=== PATIENT | male | born 1930 | race Caucasian/White ===

== ENCOUNTER 2021-08-26 05:39 | Outpatient (CLI) | payer MEDICARE ==
[~2021-08-26] VITALS: Ht 182.9 cm; Wt 109.1 kg
[2021-08-26] MEDS ORDERED: VITA-189 PO (16:07)
[2021-08-26] MEDS ORDERED: ATOR20TA66 PO (16:07)
[2021-08-26] MEDS ORDERED: CALC-140 PO (16:07)
[2021-08-26] MEDS ORDERED: FURO20TA4 PO (16:07)
[2021-08-26] MEDS ORDERED: TMSL.4C PO (16:07)
[2021-08-26] MEDS ORDERED: ASCO-262 PO (16:07)
[2021-08-26] MEDS ORDERED: CYAN100088 PO (16:07)
[2021-08-26] MEDS ORDERED: ASPI-999 PO (16:07)
[2021-08-26] MEDS ORDERED: FERR-84 PO (16:07)
[2021-08-26] MEDS ORDERED: POTA10TA36 PO (16:07)
[2021-08-26] MEDS ORDERED: CYAN1TAB43 PO (16:07)
[2021-08-26] MEDS ORDERED: FINA5TAB6 PO (16:07)
[2021-08-26] MEDS ORDERED: NITR1PAT56 TD (16:07)
[2021-08-26] MEDS ORDERED: AMLO-250 PO (16:07)
== END 2021-08-26 16:15 | disposition home or self-care (01) ==
LOC: PREOP 05:39
PROVIDERS: ATTEND Otolaryngology Otolaryngology/Facial Plastic Surgery
DX: Z01.818 Encounter for other preprocedural examination (principal)

== ENCOUNTER 2021-09-04 07:54 | Day surgery (SDC) | payer MEDICARE ==
[2021-09-04] VITALS (7 sets, daily range): BP systolic 106–160; BP diastolic 54–88
[~2021-09-04] VITALS: Ht 182.9 cm; Wt 109.1 kg
[~2021-09-04 07:54] MED LIST: AMLO-250 PO; ASCO-262 PO; ASPI-999 PO; ATOR20TA66 PO; CALC-140 PO; CYAN100088 PO; CYAN1TAB43 PO; FERR-84 PO; FINA5TAB6 PO; FURO20TA4 PO; NITR1PAT56 TD; POTA10TA36 PO; TMSL.4C PO; VITA-189 PO
--- OUTSIDE RECORDS SUMMARY | 2021-09-04 07:58 | XMS REPORT | Clinical Summary ---
Author Author [facility] Organization [facility] Address Unknown Phone Unavailable Care Team Providers Care Fur Dyer Name Role Phone PCP Unavailable Allergies Not on File Medications Not on file Active Problems Not on file Social History Date Tobacco Use Types Packs/Day Years Used Never Assessed Sex Assigned at Date Recorded Not on file Last Filed Vital Signs Not on file Plan of Treatment Not on file Results Not on filefrom Last 3 Months
--- OUTSIDE RECORDS SUMMARY | 2021-09-04 07:58 | XMS REPORT ---
Author Author Francisco RUIZ Organization [facility] Address [address] [place], [place] [id number] Care Team Providers Care Driller'S Offsider Name Role Phone KAVEH RUIZ PCP Allergies and Adverse Reactions Name Reaction Notes Cipro Plan of Treatment Planned Activity Comments Planned Date Planned Time Plan/Goal PSA TOTAL 01/01/2019 12:00 AM PSA TOTAL 02/07/2019 12:00 AM URINALYSIS ROUTINE C&S IF IND 08/18/2021 12:00 AM Medications Active Name Start Date Estimated Completion Date SIG Co mments Aspir-81 81 mg oral tablet,delayed release (DR/EC) take 1 tablet (81 mg) by oral route once daily Lasix 20 mg oral tablet take 1 tablet (20 mg) by oral route once daily Avodart 0.5 mg oral capsule take 1 capsule (0.5 mg) by oral route once daily Vitamin B-6 oral Vitamin B-12 oral iron 325 mg (65 mg iron) oral tablet take 1 tablet (325 mg) by oral route 2 times per day potassium chloride 10 mEq oral capsule, extended release take 1 capsule (10 meq) by oral route once daily with food lisinopril 5 mg oral tablet take 1 tablet (5 mg) by oral route once daily tamsulosin oral capsule,extended release 24hr 0.4 mg 05/07/2021 05/02/2022 take 2 capsules (0.8 mg) by oral route once daily 1/2 hour following the same meal each day for 90 days Name Start Date Expiration Date SIG Comments Cipro 250 mg oral tablet Take 1 tablet PO BID Bactrim DS 800-160 mg oral tablet 07/29/2016 08/05/2016 take 1 tablet by oral route every 12 hours for 7 days tamsulosin 0.4 mg oral capsule t chaparrita 1 capsule (0.4 mg) by oral route once daily 1/2 hour following the same meal each day Bactrim 400 mg-80 mg tablet 05/28/2021 06/04/2021 take 1 tablet by oral route 2 times a day for 7 days clotrimazole-betamethasone 1-0.05 % topical cream 07/01/2021 07/29/2021 apply to the affected and surrounding areas of skin by topical route 2 times per day in the morning and evening for 14 days cefdinir 300 mg oral capsule 07/01/2021 07/11/2021 gustavo e 1 capsule (300 mg) by oral route every 12 hours for 10 days Discontinued Name Start Date Discontinued Date SIG Comments doxazosin oral 06/15/2019 Takes 1 tablet PO QD cephalexin 250 mg capsule 05/19/2021 07/01/2021 take 1 capsule (250 mg) by oral route once daily for UTI prophylaxis took 30d and did not refill Problem List Description Status Onset BPH (benign prostatic hyperplasia) Active Edema Active Adenocarcinoma of prostate Active 08/27/2015 Urinary retention Active 08/27/2015 Adenocarcinoma of prostate Active 09/01/2015 Bacterial UTI Active 03/10/2016 Bladder calculus Active 03/10/2016 Bacterial urinary infection Active 07/27/2016 Phimosis Active 07/27/2016 Lip lesion Active 11/26/2016 Chronic UTI Active 11/26/2016 Drug therapy Active 06/09/2017 H/O renal calculi Active 06/09/2017 Acquired bladder neck obstruction Active 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 Vital Signs Date Time BP-Sys(mm[Hg] BP-[place](mm[Hg]) HR(bpm) RR(rpm) Temp WT HT HC BMI BSA BMI Percentile O2 Sat(%) 08/18/2021 1:01:00 PM 132 mm[Hg] 94 mm[Hg] 77 {beats}/min 24 rpm 98.1 F 261 lbs 72 in 35.3976 kg/m2 2.4524 m2 95 % 06/30/2021 2:00:00 PM 128 mm[Hg] 90 mm[Hg] 93 {beats}/min 18 rpm 98.8 F 96 % 05/07/2021 1:38:00 PM 126 mm[Hg] 78 mm[Hg] 67 {beats}/min 18 rpm 97.5 F 256 lbs 72 in 34.7195 kg/m2 2.4288 m2 93 % 04/14/2021 1:21:00 PM 138 mm[Hg] 86 mm[Hg] 80 {beats}/min 16 rpm 97.9 F 258 lbs 72 in 34.99 kg/m2 2.44 m2 95 % 06/15/2019 2:44:00 PM 130 mm[Hg] 86 mm[Hg] 67 {beats}/min 18 rpm 98.1 F 248 lbs 72 in 33.6345 kg/m2 2.3905 m2 94 % 02/07/2019 3:51:00 PM 136 mm[Hg] 84 mm[Hg] 55 {beats}/min 58 rpm 97.7 F 248.125 lbs 72 in 33.65 kg/m2 2.39 m2 94 % 11/08/2018 1:11:00 PM 120 mm[Hg] 88 mm[Hg] 97 {beats}/min 18 rpm 98.4 F 244 lbs 72 in 33.092 kg/m2 2.3712 m2 95 % 04/28/2018 3:11:00 PM 124 mm[Hg] 62 mm[Hg] 54 {beats}/min 14 rpm 98.4 F 245.25 lbs 96 % 10/18/2017 10:16:00 AM 148 mm[Hg] 92 mm[Hg] 56 {beats}/min 18 rpm 246 lbs 72 in 33.36 kg/m2 2.38 m2 95 % 06/09/2017 10:38:00 AM 120 mm[Hg] 80 mm[Hg] 49 {beats}/min 20 rpm 97.2 F 249 lbs 72 in 33.7701 kg/m2 2.3953 m2 94 % 11/26/2016 8:50:00 AM 130 mm[Hg] 68 mm[Hg] 55 {beats}/min 20 rpm 96.7 F 252 lbs 72 in 34.18 kg/m2 2.41 m2 96 % 07/27/2016 8:25:00 AM 128 mm[Hg] 74 mm[Hg] 51 {beats}/min 22 rpm 97 F 246 lbs 72 in 33.3633 kg/m2 2.3809 m2 96 % 03/10/2016 8:54:00 AM 160 mm[Hg] 80 mm[Hg] 50 {beats}/min 18 rpm 97.8 F 232 lbs 72 in 31.46 kg/m2 2.31 m2 96 % 08/06/2015 11:05:00 AM 224 lbs 72 in 30.3795 k g/m2 2.2719 m2 05/02/2015 9:48:00 AM 224 lbs 72 in 30.38 kg/m 2 2.27 m2 Social History Name Description Comments Caffeine Current every day 02/07/2019 - Tobacco Never smoker History of Procedures Date Ordered Description Order Status 08/06/2015 12:00 AM MICROBIOLOGY PROCEDURE Reviewed 08/13/2015 12:00 AM URNLS DIP STICK/TABLET RGNT AUTO W/O FLORES ROSCOPY Reviewed 08/15/2015 12:00 AM US URINE CAPACITY MEASURE Reviewed 03/10/2016 9:43 AM URINALYSIS AUTO W/O SCOPE Reviewed 03/10/2016 12:00 AM MICROBIOLOGY PROCEDURE Reviewed 07/27/2016 12:00 AM MICROBIOLOGY PROCEDURE Reviewed 07/27/2016 9:19 AM URINALYSIS AUTO W/O SCOPE Reviewed 11/26/2016 12:00 AM MICROBIOLOGY PROCEDURE Reviewed 05/17/2017 12:00 AM ASSAY OF PSA TOTAL Reviewed 06/09/2017 12:00 AM US EXAM PELVIC LIMITED Reviewed 06/09/2017 1:06 PM URINALYSIS AUTO W/O SCOPE Reviewed 10/18/2017 12:09 PM URINALYSIS AUTO W/O SCOPE Reviewed 04/28/2018 12:00 AM URINALYSIS AUTO W/SCOPE Reviewed 10/30/2018 12:00 AM ASSAY OF PSA TOTAL Reviewed 10/30/2018 12:00 AM X-RAY EXAM OF ABDOMEN Reviewed 02/07/2019 12:00 AM URINALYSIS AUTO W/SCOPE Reviewed 06/11/2019 12:00 AM ASSAY OF TOTAL TESTOSTERONE Reviewed 06/11/2019 12:00 AM ASSAY OF PSA TOTAL Reviewed 06/15/2019 12:00 AM URINALYSIS AUTO W/SCOPE Reviewed 04/14/2021 1:48 PM US URINE CAPACITY MEASURE Reviewed 04/14/2021 12:00 AM URINALYSIS AUTO W/SCOPE Reviewed 05/19/2021 12:00 AM URINALYSIS AUTO W/SCOPE Reviewed 05/19/2021 12:00 AM CYSTOSCOPY Reviewed 06/30/2021 12:00 AM URINALYSIS AUTO W/SCOPE Reviewed 05/02/2015 12:00 AM METABOLIC PANEL TOTAL CA Reviewed 05/27/2015 12:00 AM ASSAY OF TOTAL TESTOSTERONE Reviewed 05/27/2015 12:00 AM URINE BACTERIA CULTURE Reviewed Results Summary Date and Description Results 05/13/2015 6:50 AM GLUCOSE 102.0 mg/dLSODIUM 13 6.0 mmol/LPOTASSIUM 4.70 mmol/LCHLORIDE 100.0 mmol/LCO2 24.0 mmol/LBUN 13.0 mg/dLCREATININE 1.10 mg/dLCALCIUM 8.90 mg/dLAGE 85 GFR NonAA 64 GFR AA 78 eGFR >60 mL/min/1.73 m2eGFR AA* >60 WBC 10.3 RBC 4.69 HGB 13.10 g/dLHCT 41.40 %MCV 88.0 fLMCH 27.90 pgMCHC 31.60 g/dLRDW SD 50 RDW CV 15.70 %MPV 10.40 fLPLT 225 NRBC# 0.00 NRBC% 0.0 %NEUT 73.60 %%LYMP 14.70 %%MONO 8.0 %%EOS 3.30 %%BASO 0.40 %#NEUT 7.55 #LYMP 1.51 #MONO 0.82 #EOS 0.34 #BASO 0.04 MANUAL DIFF NOT IND 05/14/2015 6:10 AM GLUCOSE 108.0 mg/dLSODIUM 13 4.0 mmol/LPOTASSIUM 4.0 mmol/LCHLORIDE 102.0 mmol/LCO2 23.0 mmol/LBUN 17.0 mg/dLCREATININE 1.10 mg/dLCALCIUM 8.10 mg/dLAGE 85 GFR NonAA 64 GFR AA 78 eGFR >60 mL/min/1.73 m2eGFR AA* >60 05/27/2015 2:16 PM TESTOSTERONE 502.0 ng/dL 03/10/2016 9:43 AM Clarity Ur TURBID Color Ur - ------- Glucose Ur-sCnc -VE Bilirub Ur Ql Strip -VE Ketones Ur Ql Strip -VE Sp Gr Ur Qn 1020 Hgb Ur Ql Strip -VE pH Ur-LsCnc 6.0 Prot Ur Ql Strip + Urobilinogen Ur-mCnc -VE Nitrite Ur Ql Strip ++ WBC Est Ur Ql Strip +++ 07/27/2016 9:19 AM Clarity Ur TURBID Color Ur - -------- Glucose Ur-sCnc -VE Bilirub Ur Ql Strip -VE Ketones Ur Ql Strip -VE Sp Gr Ur Qn 1015 Hgb Ur Ql Strip -VE pH Ur-LsCnc 6.0 Prot Ur Ql Strip -VE Urobilinogen Ur-mCnc -VE WBC Est Ur Ql Strip +++ 06/09/2017 1:06 PM Clarity Ur clear Color Ur -- ----- Glucose Ur-sCnc -VE Bilirub Ur Ql Strip -VE Ketones Ur Ql Strip -VE Sp Gr Ur Qn 1015 Hgb Ur Ql Strip -VE pH Ur-LsCnc 6.0 Prot Ur Ql Strip -VE Urobilinogen Ur-mCnc -VE Nitrite Ur Ql Strip - VE WBC Est Ur Ql Strip -VE 10/18/2017 12:09 PM Clarity Ur CLEAR Color Ur -- - Glucose Ur-sCnc -VE Bilirub Ur Ql Strip -VE Ketones Ur Ql Strip -VE Sp Gr Ur Qn 1010 Hgb Ur Ql Strip -VE pH Ur-LsCnc 6.0 Prot Ur Ql Strip -VE Urobilinogen Ur-mCnc -VE Nitrite Ur Ql Strip - VE WBC Est Ur Ql Strip -VE 04/28/2018 3:56 PM COLOR YELLOW APPEARANCE PHYLICIA R SPEC GRAV 1.020 pH 5.0 PROTEIN NEGATIVE GLUCOSE NEGATIVE mg/dLKETONE NEGATIVE BILIRUBIN NEGATIVE BLOOD NEGATIVE NITRITE NEGATIVE LEUK SCREEN NEGATIVE WBC/HPF NEGATIVE RBC/HPF 0-3 CASTS/LPF NEGATIVE /LPFCRYSTALS NEGATIVE MUCOUS THRDS NEGATIVE BACTERIA NEGATIVE EPITH CELLS FEW SQUAMOUS /HPFTRICHOMONAS NEGATIVE YEAST NEGATIVE CULT SET UP? NO 10/30/2018 3:40 PM PSA TOTAL 1.440 ng/mL 02/07/2019 4:45 PM COLOR YELLOW APPEARANCE PHYLICIA R SPEC GRAV 1.025 pH 5.5 PROTEIN NEGATIVE GLUCOSE NEGATIVE KETONE NEGATIVE BILIRUBIN NEGATIVE BLOOD NEGATIVE NITRITE NEGATIVE LEUK SCREEN NEGATIVE WBC/HPF 0-5 RBC/HPF RARE CASTS/LPF NEGATIVE CRYSTALS NEGATIVE MUCOUS THRDS FEW BACTERIA NEGATIVE EPITH CELLS FEW SQUAMOUS TRICHOMONAS NEGATIVE YEAST NEGATIVE CULT SET UP? NO 06/15/2019 4:06 PM COLOR Light-Yellow CLARITY C lear SPEC GRAV 1.022 pH 5.5 PROTEIN Negative GLUCOSE Normal KETONE Negative BILIRUBIN Negative BLOOD Negative NITRITE Negative LEUK SCREEN Negative RBC/HPF 0-3 WBC/HPF 0-5 BACTERIA/HPF None Seen SQUAMOUS EPI/LPF Few MUCOUS/LPF Few CULT SET UP? NO 04/14/2021 1:48 PM Residual Urine 61.0 mL 04/14/2021 3:45 PM COLOR Light-Yellow CLARITY C lear SPEC GRAV 1.013 pH 5.0 PROTEIN Negative GLUCOSE Normal KETONE Negative BILIRUBIN Negative BLOOD 3+ NITRITE Negative LEUK SCREEN 250 RBC/HPF 51-100 WBC/HPF 21-50 BACTERIA/HPF None Seen SQUAMOUS EPI/LPF Few CULT SET UP? YES 05/19/2021 4:07 PM COLOR Light-Yellow CLARITY T urbid SPEC GRAV <1.005 pH 5.0 PROTEIN Negative GLUCOSE Normal KETONE Negative BILIRUBIN Negative BLOOD 3+ NITRITE Negative LEUK SCREEN 500 RBC/HPF 4-10 WBC/HPF TNTC WBC CLUMP/HPF Present BACTERIA/HPF 3+ SQUAMOUS EPI/LPF None Seen MUCOUS/LPF Few CULT SET UP? YES 06/30/2021 4:12 PM COLOR Yellow CLARITY Ex. Tur bid SPEC GRAV 1.015 pH 5.5 PROTEIN 10 GLUCOSE Normal KETONE Negative BILIRUBIN Negative BLOOD 1+ NITRITE Negative LEUK SCREEN 500 RBC/HPF 21-50 WBC/HPF TNTC WBC CLUMP/HPF Present BACTERIA/HPF 3+ SQUAMOUS EPI/LPF Few MUCOUS/LPF Few CULT SET UP? YES History Of Immunizations Not available. History of Past Illness Name Date of Onset Comments BPH (benign prostatic hyperplasia) Edema Heart Disease Adenocarcinoma of prostate 09/01/2015 Urinary retention 08/27/2015 Bacterial UTI 03/10/2016 Bladder calculus 03/10/2016 Bacterial urinary infection 07/27/2016 Phimosis 07/27/2016 Lip lesion 11/26/2016 Chronic UTI 11/26/2016 Drug therapy 06/09/2017 H/O renal calculi 06/09/2017 Acquired bladder neck obstruction 06/09/2017 Kidney stone Urinary retention May 02 2015 8:31AM Vesical calculi May 02 2015 8:31AM Urinary tract infection May 02 2015 8:31AM Abnormal prostate on physical examination May 02 2015 8:31A M Cancer of prostate May 27 2015 1:42PM Urinary retention May 27 2015 1:42PM Urinary retention Aug 06 2015 11:18AM Urinary retention Aug 13 2015 8:23AM Urinary retention Aug 15 2015 9:48AM Adenocarcinoma of prostate Aug 27 2015 3:29PM Moderate Urinary retention Aug 27 2015 3:29PM Adenocarcinoma of prostate Stable Sep 01 2015 12:36PM Adenocarcinoma of prostate Mar 10 2016 8:57AM Resolved Bladder calculus Mar 10 2016 8:57AM Recurrent Bacterial UTI Mar 10 2016 8:57AM Urinary retention Mar 10 2016 8:57AM UTI (urinary tract infection) Mar 10 2016 11:41AM UTI (urinary tract infection) Jul 27 2016 8:48AM Adenocarcinoma of prostate Jul 27 2016 8:28AM Bacterial urinary infection Jul 27 2016 8:28AM Urinary retention Jul 27 2016 8:28AM Phimosis Jul 27 2016 8:28AM UTI (urinary tract infection) Nov 26 2016 9:31AM Adenocarcinoma of prostate Nov 26 2016 8:53AM Chronic UTI Nov 26 2016 8:53AM Left Lip lesion Nov 26 2016 8:53AM Phimosis Nov 26 2016 8:53AM Adenocarcinoma of prostate May 17 2017 11:20AM BPH (benign prostatic hypertrophy) May 17 2017 11:20AM Urinary urgency Jun 09 2017 11:09AM Adenocarcinoma of prostate Stable Jun 09 2017 10:41AM Resolved Acquired bladder neck obstruction Jun 09 2017 10:41 AM H/O renal calculi Jun 09 2017 10:41AM Drug therapy Jun 09 2017 10:41AM Adenocarcinoma of prostate Oct 18 2017 10:19AM H/O renal calculi Oct 18 2017 10:19AM Adenocarcinoma of prostate Apr 28 2018 3:13PM H/O renal calculi Apr 28 2018 3:13PM BPH (benign prostatic hyperplasia) Apr 28 2018 3:13PM Adenocarcinoma of prostate Sep 26 2018 8:48AM H/O renal calculi Sep 26 2018 8:48AM Benign prostate hyperplasia Sep 26 2018 8:48AM Prostate cancer Nov 08 2018 1:14PM Kidney Stones Nov 08 2018 1:14PM Prostate cancer Feb 07 2019 4:11PM Urinary Frequency Feb 07 2019 4:11PM Prostate cancer Jun 11 2019 12:57PM Prostate cancer Jun 15 2019 2:46PM BPH (benign prostatic hyperplasia) Jun 15 2019 2:46PM Lower urinary obstructive symptom Apr 14 2021 1:24PM Recurrent urinary tract infection Apr 14 2021 1:24PM Prostate cancer Apr 14 2021 1:24PM Recurrent UTI Apr 14 2021 1:24PM Lower urinary obstructive symptom May 07 2021 1:39PM Prostate cancer May 07 2021 1:39PM Phimosis May 19 2021 2:21PM 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 Recurrent UTI May 19 2021 2:21PM Recurrent UTI May 19 2021 2:26PM Recurrent urinary tract infection Jun 30 2021 2:13PM Phimosis of penis Jun 30 2021 2:13PM Phimosis of penis Aug 18 2021 1:01PM Recurrent urinary tract infection Aug 18 2021 1:01PM Prostate cancer Aug 18 2021 1:01PM Payers Insurance Name Company Name Plan Name Plan Number Policy Number [place] Group Number Start Date Medicare Part B Medicare [facility] [id number] N/A BC[employer] [place] [id number] N/ A Medicare Part A Medicare - Lab/Xray [id number] N/A Medicare RHC Medicare RHC [id number] N/ A History of Encounters Visit Date Visit Type Provider 08/18/2021 Office visit KAVEH RUIZ MUFFLE OPERATOR 06/30/2021 Office visit KAVEH RUIZ MUFFLE OPERATOR 05/19/2021 Procedures Rey Ott MD 05/07/2021 Office visit KAVEH RUIZ MUFFLE OPERATOR 04/14/2021 Office visit KAVEH RUIZ MUFFLE OPERATOR 06/15/2019 Office visit Rey Ott MD 02/07/2019 Office visit Rey Ott MD 11/08/2018 Office visit Rey Ott MD 04/28/2018 Office visit Rey Ott MD 10/18/2017 Office visit Yusra Ny MD 06/09/2017 Office visit Yusra Ny MD 11/26/2016 Office visit Yusra Ny MD 07/27/2016 Office visit Yusra Ny MD 03/10/2016 Office visit Yusra Ny MD 09/01/2015 Procedures Yusra Ny MD 08/06/2015 Procedures Yusra Ny MD 05/27/2015 Office visit Yusra Ny MD 05/13/2015 [facility] Ny MD 05/12/2015 Hospital Yusra Ny MD 05/02/2015 Office visit Yusra Ny MD 04/07/2015 [facility] Jane Ny MD 04/07/2015 [facility] Prem Moore MD 03/25/2015 Office visit Yusra Ny MD
[2021-09-04] MEDS ORDERED: LACTATED RINGERS 1,000 ML IV PRN (08:00)
[2021-09-04] MEDS ORDERED: MUPIROCIN 2% OINT 22 GM (BACTROBAN) TUBE ONE (08:16)
[2021-09-04] MEDS ORDERED: LIDOCAINE/EPI 1%-1:100,000 (XYLOCAINE) 20ML ONE (08:16)
[2021-09-04] MEDS ORDERED: LIDOCAINE PF 2% 5 ML (XYLOCAINE) VIAL ONE (08:25)
[2021-09-04] MEDS ORDERED: ROCURONIUM 10 MG/ML 5 ML SYRINGE IV ONE (08:25)
[2021-09-04] MEDS ORDERED: proPOfol 200 MG/20 ML (DIPRIVAN) VIAL IV ONE (08:25)
[2021-09-04] MEDS ORDERED: fentaNYL INJ 100 MCG/2 ML AMP ONE (08:25)
--- NOTE | 2021-09-04 09:12 | Progress Note-Pre Operative ---
Pre-Operative Progress Note H&P Reviewed The H&P was reviewed, patient examined and no changes noted. Date Seen by Provider: Sep 04, 2021 Time Seen by Provider: 08:45 Date H&P Reviewed: Sep 04, 2021 Time H&P Reviewed: 08:45 Pre-Operative Diagnosis: Large Right Posterior Neck Lesion RENUKA BROWN MD Sep 04, 2021 09:12
--- NOTE | 2021-09-04 09:13 | Progress Note-Post Operative ---
Post-Operative Progess Note Surgeon (s)/Farmworker (s) Surgeon RENUKA BROWN MD Farmworker n/a Pre-Operative Diagnosis Large Right Posterior Neck Lesion Post-Operative Diagnosis same Post-Op Procedure Note Date of Procedure: Sep 04, 2021 Name of Procedure Performed: Excision of Right Posterior Neck Lesion with INtermediate Repair Description & Findings Description and Findings: n/a Anesthesia Type get Estimated Blood Loss minimal Packing none. Specimen(s) collected/removed right posterior Neck Lesion for frozen section RENUKA BROWN MD Sep 04, 2021 09:13
[2021-09-04] MEDS ORDERED: HYDROcodone/APAP 5 MG/325 MG (LORTAB) TAB PO PRN (09:15)
[2021-09-04] MEDS ORDERED: ACETAMINOPHEN 325 MG TABLET PO PRN (09:15)
[2021-09-04] MEDS ORDERED: SEVOFLURANE (ULTANE) 15 ML INHAL SOLN ONE (10:01)
[2021-09-04] MEDS ORDERED: NEOSTIGMINE 3 MG/3 ML VIAL ONE (10:07)
[2021-09-04] MEDS ORDERED: GLYCOPYRROLATE 0.2 MG/ML (ROBINUL) 2 ML VIAL ONE (10:07)
[2021-09-04] MEDS ORDERED: ONDANSETRON 4 MG/2 ML (SDV) Z0FRAN IVP PRN (10:45)
[2021-09-04] MEDS ORDERED: HYDROmorphone 2 MG/ML VIAL (DILAUDID) IV ONE (10:45)
[2021-09-04] MEDS ORDERED: CEPH500T PO (11:41)
[2021-09-04] MEDS ORDERED: ACHD5005 PO (11:41)
--- NOTE | 2021-09-04 13:59 | Anesthesia-General Post-Op ---
General Patient Condition Mental Status/LOC: Same as Preop Cardiovascular: Satisfactory Nausea/Vomiting: Absent Respiratory: Satisfactory Pain: Controlled Complications: Absent Post Op Complications Complications None Follow Up Care/Instructions Patient Instructions None needed. Anesthesia/Patient Condition Patient Condition Patient is doing well, no complaints, stable vital signs, no apparent adverse anesthesia problems. No complications reported per nursing. D/C home per [facility] Criteria: Yes [id number] SHAVER CRNA Sep 04, 2021 13:59
== END 2021-09-04 12:10 | disposition home or self-care (01) ==
LOC: SDC 07:54
PROVIDERS: ATTEND Otolaryngology Otolaryngology/Facial Plastic Surgery
DX: C76.0 Malignant neoplasm of head, face and neck (principal); I25.10 Atherosclerotic heart disease of native coronary artery without angina pectoris; Z95.1 Presence of aortocoronary bypass graft; Z79.82 Long term (current) use of aspirin; Z79.899 Other long term (current) drug therapy
CPT/HCPCS: 87081